=== PATIENT | female | born 1950 | race Caucasian/White ===

== ENCOUNTER → 2023-08-27 09:50 | Outpatient (REF) | payer MEDICARE, BC, SELFPAY ==
[2023-08-27 11:13] LABS: % Basophils 0.5 % (0-2); % Eosinophils 1.1 % (0-6); % Immature Granulocytes 0.3 % (0-0.5); % Lymphocytes 22.6 % (20.5-51.1); % Monocytes 7.8 % (1.7-9.3); % Neutrophils 67.7 % (42.2-75.2); Absolute Eosinophils 0.1 10^3/uL (0-0.7); Absolute Lymphocytes 1.4 10^3/uL (1.2-3.4); Absolute Monocytes 0.5 10^3/uL (0.1-0.6); Absolute Neutrophils 4.3 10^3/uL (1.4-6.5); Hematocrit 40.3 % (37.0-47.0); Hemoglobin 13.4 g/dL (12.0-16.0); Mean Corp Hgb Conc. 33.3 g/dL (33.0-37.0); Mean Corpuscular Volume 87.2 fL (81.0-99.0); Mean Platelet Volume 10.3 fL (7.4-10.4); Nucleated Red Blood Cells % 0 %; Platelet Count 270 10^3/uL (130-400); Red Blood Cell Count 4.62 10^6/uL (4.20-5.40); Red Cell Dist. Width 12.8 % (11.5-14.5); White Blood Cell Count 6.3 10^3/uL (4.8-10.8)
[2023-08-27 11:56] LABS: Vitamin D, 25-OH*** 32.9 ng/mL (30-80)
[2023-08-27 12:10] LABS: ALT (SGPT) 15 U/L (0-35); AST (SGOT) 23 U/L (14-36); Albumin 4.2 g/dl (3.5-5.0); Alkaline Phosphatase 89 U/L (38-126); Blood Urea Nitrogen 17 mg/dl (7-17); Calcium 9.9 mg/dl (8.4-10.2); Carbon Dioxide 24 mmol/L (22-30); Chloride 107 mmol/L (98-107); Glucose 92 mg/dl (70-99); HDL Cholesterol 83 mg/dl; LDL Cholesterol, Calculated 96 mg/dl; Potassium 4.7 mmol/L (3.5-5.1); Sodium 138 mmol/L (135-145); TSH Reflex To Free T4 0.79 uIU/ml (0.47-4.68); Total Bilirubin 0.5 mg/dl (0.2-1.3); Total Cholesterol 196 mg/dl (50-199); Total Protein 6.6 g/dl (6.3-8.2); Triglyceride 88 mg/dl (10-149); Very Low Density Lipoprotein 17 mg/dl (0-30); eGFR > 60.00
== END ==
LOC: REG 09:50
PROVIDERS: ATTENDING PHYSICIAN Nurse Practitioner Family; FAMILY PHYSICIAN Internal Medicine Geriatric Medicine
DX: Z01.818 Encounter for other preprocedural examination (principal); E78.2 Mixed hyperlipidemia; E56.9 Vitamin deficiency, unspecified; Z13.29 Encounter for screening for other suspected endocrine disorder; E55.9 Vitamin D deficiency, unspecified
CPT/HCPCS: 36415; 80053; 80061; 82306; 84443; 85025

== ENCOUNTER → 2024-03-07 11:31 | Outpatient (REF) | payer MEDICARE, BC, SELFPAY ==
[2024-03-07 13:19] LABS: ALT (SGPT) 18 U/L (0-35); AST (SGOT) 23 U/L (14-36); Albumin 4.3 g/dl (3.5-5.0); Alkaline Phosphatase 97 U/L (38-126); Iron 99 ug/dl (37-170); Total Bilirubin 0.3 mg/dl (0.2-1.3)
[2024-03-07 13:51] LABS: Hepatitis B Surface Antigen Negative (Negative)
[2024-03-07 14:09] LABS: Hepatitis A Antibody, Total Positive (Negative); Hepatitis B Core Ab, Total Negative (Negative); Hepatitis B Surface Antibody Negative; Hepatitis C Antibody Negative (Negative)
[2024-03-08 14:04] LABS: Ceruloplasmin 28 mg/dL (16-45)
[2024-03-08 15:34] LABS: Alpha-1-Antitrypsin 134 mg/dL (90-200)
[2024-03-08 21:29] LABS: LKM-1 Ab (IgG) 0.8 U (0.0-24.9)
[2024-03-09 00:19] LABS: IgA 109 mg/dl (70-400); IgG 949 mg/dl (700-1600); IgM 55 mg/dl (40-230)
[2024-03-09 01:21] LABS: F-Actin Antibody IgG 3 Units (0-19); Mitochondrial M2 Ab, IgG 2.8 Units (0.0-24.9)
[2024-03-09 01:56] LABS: ANA, IgG Reflex to HEp-2 None Detected (None Detected)
== END ==
LOC: REG 11:31
PROVIDERS: ATTENDING PHYSICIAN Internal Medicine Gastroenterology
DX: K76.0 Fatty (change of) liver, not elsewhere classified (principal)
CPT/HCPCS: 36415; 80076; 82103; 82390; 82728; 82784; 83516; 83540; 86015; 86038; 86364; 86376; 86381; 86704; 86706; 86708; 86803; 87340

== ENCOUNTER 2024-04-24 06:26 | Day surgery (SDC) | payer MEDICARE, BC, SELFPAY | END 2024-04-24 11:27 | disposition home or self-care (01) | LOC: GI 06:26 | PROVIDERS: ATTENDING PHYSICIAN Internal Medicine Gastroenterology | DX: Z12.11 Encounter for screening for malignant neoplasm of colon (principal); K57.30 Diverticulosis of large intestine without perforation or abscess without bleeding; K64.0 First degree hemorrhoids; R10.11 Right upper quadrant pain; K31.7 Polyp of stomach and duodenum; D12.4 Benign neoplasm of descending colon; D12.2 Benign neoplasm of ascending colon; D12.3 Benign neoplasm of transverse colon; K62.1 Rectal polyp | CPT/HCPCS: 45385; 45381; 45380; 43239; 88305; 88342 ==

== ENCOUNTER → 2025-01-03 09:12 | Outpatient (REF) | payer MEDICARE, BC, SELFPAY | LOC: HWRAD 09:12 | PROVIDERS: ATTENDING PHYSICIAN Internal Medicine Geriatric Medicine | DX: I10 Essential (primary) hypertension (principal); E55.9 Vitamin D deficiency, unspecified; S43.004D Unspecified dislocation of right shoulder joint, subsequent encounter; M25.569 Pain in unspecified knee; R05.3 Chronic cough; R68.89 Other general symptoms and signs; Z87.19 Personal history of other diseases of the digestive system; Z13.89 Encounter for screening for other disorder; E78.2 Mixed hyperlipidemia | CPT/HCPCS: 75571 ==